=== PATIENT | female | born 1980 | race American Indian/Alaskan Native ===

== ENCOUNTER 2016-10-23 11:47 | Emergency (ER) | payer BC ==
[2016-10-23 11:47] VITALS: BMI 32.8
[2016-10-23 12:08] VITALS: RESP 20
--- NOTE | 2016-10-23 13:22 | C.PDOC ---
History Of Present Illness 36F A2 @ 22weeks 5 days GA c/o elevated bg that she noted this morning, was 216. she has a hx of GDM back in 2002. tested + again for GDM 2 weeks ago and has been measuring bg daily since then, has been wnl until today. she also reports lightheaded sensation today as well as mild gradual onset headache for the last 3 days, improves with tylenol. similar to headaches she used to have during the first trimester. no other exac or reliev fx. vision also slightly "blurry" while looking at her computer screen this morning. Time Seen by Provider: 10/23/16 12:58 Chief Complaint (Nursing): High Blood Sugar Past Medical History Vital Signs: Last Vital Signs Temp 98.5 F 10/23/16 16:00 Pulse 91 H 10/23/16 16:00 Resp 20 10/23/16 16:00 BP 128/72 10/23/16 16:00 Pulse Ox 98 10/23/16 16:16 Family History: States: Other (nc) - Social History Hx Alcohol Use: No Hx Substance Use: No - Immunization History Hx Tetanus Toxoid Vaccination: Yes Hx Influenza Vaccination: No Hx Pneumococcal Vaccination: No Review Of Systems Except As Marked, All Systems Reviewed And Found Negative. Constitutional: Negative for: Fever, Chills, Weakness, Malaise ENT: Negative for: Nose Congestion Cardiovascular: Positive for: Light Headedness. Negative for: Chest Pain, Palpitations, Edema Respiratory: Negative for: Cough, Shortness of Breath Gastrointestinal: Negative for: Nausea, Vomiting, Abdominal Pain, Diarrhea Genitourinary: Negative for: Dysuria, Frequency Neurological: Positive for: Headache. Negative for: Weakness, Numbness, Change in Speech, Confusion, Seizures, Altered Mental Status Physical Exam - Physical Exam Appears: Well, Non-toxic, No Acute Distress Skin: Warm, Dry Head: Atraumatic Eye(s): bilateral: PERRL, EOMI Neck: Normal ROM Cardiovascular: Rhythm Regular, No Murmur Respiratory: Normal Breath Sounds, No Decreased Breath Sounds, No Accessory Muscle Use, No Rales, No Rhonchi, No Stridor, No Wheezing Gastrointestinal/Abdominal: Soft, No Tenderness, Other (gravid) Extremity: No Swelling Neurological/Psych: Oriented x3, Normal Cranial Nerves, No Cerebellar Signs, Normal Motor, Normal Sensation, Other (no focal deficits) ED Course And Treatment O2 Sat by Pulse Oximetry: 98 Medical Decision Making Medical Decision Making: using M mode on bedside US FHR 140. + movement. ecg- nsr 85, nl axis, nl int, no acute ischemia 1500 pt reports her sx are resolved. she says her child upset her this morning and feels that her sx were mainly due to stress. she is very well-appearing, nl neuro exam, VSS. very low susp for any serious neuro pathology- SAH, VST, etc. she wishes to be discharged. I paged her OBGYN Dr Milligan to update her. [id number] Dr Milligan returned call- she will f/u w pt in her office. Disposition - Disposition Referrals: Christina Milligan MD [Staff Provider] - Disposition: HOME/ ROUTINE Disposition Time: 15:23 Condition: IMPROVED Additional Instructions: Please follow up with your OBGYN doctor today or tomorrow. Return to the ER for any worsening symptoms or for any other concerns. Instructions: Gestational Diabetes (ED) Forms: General Discharge Instructions - Clinical Impression Clinical Impression: Hyperglycemia during , Headache
[2016-10-23 13:53] LABS: URINE BILIRUBIN NEGATIVE (NEGATIVE); URINE BLOOD 1+ (NEGATIVE); URINE COLOR Straw (YELLOW); URINE GLUCOSE (UA) NORMAL (Normal); URINE KETONE NEGATIVE (NEGATIVE); URINE LEUKOCYTE ESTERASE NEG Leu/uL (Negative); URINE PROTEIN NEGATIVE (NEGATIVE); URINE UROBILINOGEN NORMAL mg/dL (0.2-1.0); WBC URINE 1 /hpf (0-5)
[2016-10-23 14:25] LABS: RBC URINE 7 /hpf (0-3)
[2016-10-23 16:01] VITALS: BP 128/72; PULSE 91; TEMP 98.5
[2016-10-23 16:16] VITALS: O2SAT 98
--- NOTE | 2016-10-24 12:00 | CARD ---
APPROVED REPORT EKG Measurement Heart [id number] <Conclusion> Normal sinus rhythm Normal ECG
== END 2016-10-23 16:01 | disposition home or self-care (01) ==
LOC: C.ER 11:47
DX: O24.419 Gestational diabetes mellitus in pregnancy, unspecified control (principal); Z3A.22 22 weeks gestation of pregnancy; R51 Headache